=== PATIENT | female | born 1985 | race Caucasian/White ===

== ENCOUNTER 2017-04-11 02:42 | Emergency (ER) | payer MEDICAID ==
[~2017-04-11] VITALS: Ht 167.6 cm; Wt 110.0 kg
[2017-04-11] MEDS ORDERED: BACLOFEN 10 MG TABLET PO ONE (04:30)
[2017-04-11] MEDS ORDERED: KETOROLAC TROMETHAMINE 60 MG/2 ML VIAL IM ONE (04:30)
[2017-04-11] MEDS ORDERED: HYDROmorphone 2 MG/ML SYRINGE IM ONE (04:30)
[2017-04-11] MEDS ORDERED: ONDANSETRON HCL 4 MG/2 ML VIAL IM ONE (04:30)
[2017-04-11 05:00] VITALS: BP 137/71
== END 2017-04-11 05:45 | disposition home or self-care (01) ==
LOC: EDUNIT# 02:42 → EMS 02:47
DX: M54.42 Lumbago with sciatica, left side (principal)
CPT/HCPCS: 72100; 96372; 99284; J1170; J1885; J2405

== ENCOUNTER 2021-05-22 20:06 | Emergency (ER) | payer MEDICAID ==
[~2021-05-22] VITALS: Ht 165.1 cm; Wt 118.2 kg
[2021-05-22] MEDS ORDERED: CEPHALEXIN MONOHYDRATE 500 MG CAPSULE PO ONE (23:30)
[2021-05-22] MEDS ORDERED: SULFAMETHOX/TRIMETH DS 800-160 MG/TABLET PO ONE (23:30)
[2021-05-22 23:59] VITALS: BP 120/73
== END 2021-05-23 00:25 | disposition home or self-care (01) ==
LOC: EMS 20:26
DX: N76.4 Abscess of vulva (principal)
CPT/HCPCS: 99283

== ENCOUNTER 2021-06-05 00:24 | Emergency (ER) | payer MEDICAID ==
[~2021-06-05] VITALS: Ht 167.6 cm; Wt 122.7 kg
[2021-06-05] MEDS ORDERED: MICONAZOLE NITRATE 2% 45 GM VAGINAL CREAM VG ONE (05:30)
[2021-06-05] MEDS ORDERED: FLUCONAZOLE 200 MG TABLET PO ONE (05:30)
[2021-06-05 05:42] LABS: GLUCOMETER DEV NAME(LOC) ERT.5; GLUCOSE,POINT OF CARE 324 MG/DL (70-110)
[2021-06-05] MEDS ORDERED: INSULIN REGULAR, HUMAN 100 UNITS/ML SQ ONE (05:45)
[2021-06-05 06:30] VITALS: BP 126/82
== END 2021-06-05 06:43 | disposition home or self-care (01) ==
LOC: EMS 00:28
DX: E11.65 Type 2 diabetes mellitus with hyperglycemia (principal); B37.3 Candidiasis of vulva and vagina; Z90.89 Acquired absence of other organs
CPT/HCPCS: 82962; 96372; 99283; J1815